=== PATIENT | female | born 1985 | race Caucasian/White ===

== ENCOUNTER 2018-03-27 08:54 | Emergency (ER) | payer OTHER ==
[~2018-03-27] VITALS: Ht 144.8 cm; Wt 72.6 kg
--- NOTE | ~2018-03-27 | EKG ---
[address] [place] [address] ELECTROCARDIOGRAM REPORT Name: RADHA OROPEZA Room #: DEP INGRIS Moreira#: [id number] Admission: 03/27/18 Attend Phys: Discharge: 03/27/18 Date of : 81 Report #: [id number] THIS REPORT FOR: //name// [facility] ED Test Date: 2018-03-27 Test Time: 09:51:45 Pat Name: RADHA OROPEZA Department: Room: Gender: Manager Market: [facility] : 1985 Requested By: Juan R Valverde Order Number: [id number] MD: Braxton Yañez Measurements Intervals [place] Rate: 99 P: 49 RI: 152 QRS: 21 QRSD: 85 T: -26 QT: 359 QTc: 461 Interpretive Statements Sinus rhythm Borderline T abnormalities, diffuse leads No previous ECG available for comparison Electronically Signed On 03-30-2018 9:03:55 CDT by Braxton Yañez [email or web address] <ELECTRONICALLY SIGNED> By: Braxton Yañez MD, [facility] 03/30/18 [id number] [id number] Braxton Yañez MD, FACC /EPI
[2018-03-27 09:11] LABS: URINE BILIRUBIN NEGATIVE (Negative); URINE BLOOD 2+ (Negative); URINE CLARITY CLEAR; URINE COLOR YELLOW; URINE GLUCOSE-RANDOM* NEGATIVE (Negative); URINE KETONES NEGATIVE (Negative); URINE LEUKOCYTES NEGATIVE (Negative); URINE NITRITE NEGATIVE (Negative); URINE PROTEIN (DIPSTICK) NEGATIVE (Negative); URINE SPECIFIC GRAVITY 1.015 (1.005-1.035); URINE UROBILINOGEN 0.2 E.U./dl (0.2-1.0)
[2018-03-27 09:34] LABS: BASOPHILS 0.8 % (0.0-2.0); EOSINOPHILS 1.6 % (0.0-3.0); HEMATOCRIT 35.8 % (37.0-47.0); HEMOGLOBIN 12.6 gm/dL (12.0-15.0); LYMPHOCYTES 17.8 % (24.0-44.0); MCH 28.8 pg (26.0-34.0); MCHC 35.2 g/dL (28.0-37.0); MCV 81.8 fL (80.0-100.0); MONOCYTES 5.7 % (1.0-8.0); PLATELET COUNT 186 thou/uL (150-400); POLYS 74.1 % (36.0-66.0); RBC 4.38 mil/uL (4.20-5.00); RDW 13.5 % (10.5-14.5); WBC 6.7 thou/uL (4.0-11.0)
[2018-03-27 09:36] LABS: CASTS None Seen /LPF (None Seen); CRYSTALS None Seen /LPF (None Seen); SQUAMOUS >10 Many /LPF (0-3)
[2018-03-27 09:37] LABS: BACTERIA 1-9 Few /HPF (None Seen); URINE RBC 0-2 Rare /HPF (0-2); URINE WBC 0-5 Rare /HPF (0-5)
[2018-03-27 09:38] LABS: CALCIUM 8.6 mg/dL (8.5-10.1); CREATININE 0.7 mg/dL (0.6-1.0); POTASSIUM 3.9 mmol/L (3.5-5.1)
[2018-03-27 09:43] LABS: ALBUMIN 3.6 g/dL (3.4-5.0); TOTAL BILIRUBIN 0.7 mg/dL (<0.1-1.0); TOTAL PROTEIN 7.1 g/dL (6.4-8.2)
[2018-03-27 09:45] LABS: LIPASE 128 U/L (73-393); TROPONIN-I <0.06 ng/mL (<0.06)
[2018-03-27 18:37] VITALS: BP 155/93
== END 2018-03-27 13:00 | disposition home or self-care (01) ==
LOC: ER 08:54
PROVIDERS: Emergency Medicine
DX: R10.84 Generalized abdominal pain (principal); R11.2 Nausea with vomiting, unspecified; R07.9 Chest pain, unspecified; I10 Essential (primary) hypertension; Z90.89 Acquired absence of other organs; Z90.49 Acquired absence of other specified parts of digestive tract; Z88.5 Allergy status to narcotic agent; Z88.8 Allergy status to other drugs, medicaments and biological substances